=== PATIENT | male | born 1970 | race African-American/Black ===

== ENCOUNTER 2017-03-23 20:38 | Emergency (ER) | payer OTHER ==
[~2017-03-23] VITALS: Ht 185.4 cm; Wt 102.1 kg
[2017-03-23] MEDS ORDERED: OSELB75 PO (21:47)
== END 2017-03-23 22:39 | disposition home or self-care (01) ==
LOC: ER 20:38
DX: J09.X2 Influenza due to identified novel influenza A virus with other respiratory manifestations (principal)

== ENCOUNTER 2018-12-07 12:12 | Emergency (ER) | payer BC ==
[~2018-12-07] VITALS: Ht 185.4 cm; Wt 104.3 kg
[~2018-12-07 12:12] MED LIST: OSELB75 PO
[2018-12-07 12:15] VITALS: BP 124/80
[2018-12-07] MEDS ORDERED: PATADAY2.5 ML OPHTHALMIC ×2 (13:00→13:28)
== END 2018-12-07 12:57 | disposition home or self-care (01) ==
LOC: ER 12:12
DX: H10.9 Unspecified conjunctivitis (principal)

== ENCOUNTER 2020-12-06 16:59 | Inpatient (IN) | payer OTHER ==
[~2020-12-06] VITALS: Ht 185.4 cm; Wt 108.9 kg
[~2020-12-06 16:59] MED LIST changes: +PATADAY2.5 ML OPHTHALMIC
[2020-12-06 17:05] VITALS: BP 118/67
[2020-12-06 17:53] LABS: ABSOLUTE NEUTROPHILS 3.7 thou/uL (1.4-8.2); BASOPHILS 0.7 % (0.0-2.0); EOSINOPHILS 1.4 % (0.0-3.0); HEMATOCRIT 46.1 % (42.0-52.0); LYMPHOCYTES 40.4 % (24.0-44.0); MCH 26.7 pg (26.0-34.0); MCHC 32.6 g/dL (28.0-37.0); MCV 81.9 fL (80.0-100.0); MONOCYTES 6.3 % (1.0-8.0); PLATELET COUNT 226 thou/uL (150-400); POLYS 51.2 % (36.0-66.0); RBC 5.63 mil/uL (4.50-6.00); RDW 15.6 % (10.5-14.5); WBC 7.3 thou/uL (4.0-11.0)
[2020-12-06 17:59] LABS: CALCIUM 8.8 mg/dL (8.5-10.1); CREATININE 1.9 mg/dL (0.7-1.3); POTASSIUM 4.3 mmol/L (3.5-5.1)
[2020-12-06 23:56] LABS: CHOLESTEROL 214 mg/dL (<200); HDL CHOLESTEROL 30 mg/dL (>40); LDL CHOLESTEROL 163 mg/dL (<100); TC:HDL 7.1 Ratio (Not establshd); TRIGLYCERIDE 108 mg/dL (<150); VLDL 22 mg/dL (<40)
[2020-12-06 23:58] LABS: SERUM ASSESSMENT Clear
[2020-12-07 03:00] LABS: CALCIUM 8.1 mg/dL (8.5-10.1); CREATININE 1.5 mg/dL (0.7-1.3); POTASSIUM 4.2 mmol/L (3.5-5.1)
--- NOTE | 2020-12-07 07:09 | EKG ---
[place] [address] [address] [employer] [place] [address] ELECTROCARDIOGRAM REPORT Name: JONAS COATES Room #: 170-5 ADM IN ..#: [id number] Admission: 12/06/20 Attend Phys: Ciera Gurrola MD Discharge: Date of : 70 Report #: [id number] [facility] ED Test Date: 2020-12-06 Test Time: 17:05:05 Pat Name: JONAS COATES Department: Room: 170 Gender: M Medical Laboratory Scientist: reynold : 1970 Requested By: Dominic Sharif Order Number: [id number] MD: Jean Heard Measurements Intervals [place] Rate: 102 P: 26 MO: 173 QRS: -6 QRSD: 86 T: 0 QT: 317 QTc: 413 Interpretive Statements Sinus tachycardia Probable left atrial enlargement Borderline T abnormalities, inferior leads No previous ECG available for comparison Electronically Signed On 12-07-2020 7:09:28 CDT by Jean Heard [email or web address] <ELECTRONICALLY SIGNED> By: Jean Heard MD, [facility] 12/07/20 0709 1705 1705 Jean Heard MD, FACC /EPI
[2020-12-07 08:17] VITALS: BP 143/79
--- NOTE | 2020-12-07 10:56 | 2DMMODE ---
[facility] [place] [address] 2 D/M-MODE ECHOCARDIOGRAM Name: JONAS COATES Room #: 150-1 ADM IN M.R.#: [id number] Admission: 12/06/20 Attend Phys: Ciera Gurrola MD Discharge: Date of : 70 Report #: [id number] THIS REPORT FOR: cc: Daniel Haywood Brad DO Lundgren, Craig H. MD [facility] ~ APPROVED REPORT Study performed: 12/07/2020 10:21:20 EXAM: Comprehensive 2D, Doppler, and color-flow Echocardiogram Patient Location: CV holding Status: routine BSA: 2.33 HR: 70 bpm BP: 138/63 mmHg Rhythm: NSR Other Information Study Quality: Good/flat on back post heart cath Indications Palpitations Chest Pain Post angiogram/no intervention. 2D Dimensions RVDd: 39.26 mm IVSd: 11.13 (7-11mm) LVOT Diam: 22.82 (18-24mm) LVDd: 45.66 mm PWd: 11.00 (7-11mm) Ascending Ao: 33.42 (22-36mm) LVDs: 31.32 (25-40mm) Left Atrium: 32.35 (27-40mm) Aortic Root: 36.33 mm Volumes Left Atrial Volume (Systole) Single Plane 4CH: 41.76 mL Single Plane 2CH: 33.48 mL LA ESV Index: 18.00 mL/m2 Aortic Valve AoV Peak Austen.: 0.96 m/s [facility] [address] [place] [address] 2 D/M-MODE ECHOCARDIOGRAM Name: JONAS COATES Room #: 150-1 ADM IN ..#: [id number] Admission: 12/06/20 Attend Phys: Henny Knight Discharge: Date of : 70 Report #: [id number] AO Peak Gr.: 3.72 mmHg LVOT Max P.64 mmHg LVOT Max V: 0.81 m/s DIANA Vmax: 3.44 cm2 Mitral Valve E/A Ratio: 0.9 MV Decel. Time: 185.97 ms MV E Max Austen.: 0.48 m/s MV A Austen.: 0.54 m/s MV PHT: 53.93 ms IVRT: 96.89 ms Pulmonary Valve PV Peak Austen.: 1.03 m/s PV Peak Gr.: 4.27 mmHg Pulmonary Vein P Vein S: 0.53 m/s P Vein D: 0.31 m/s P Vein S/D Ratio: 1.71 Tricuspid Valve TR Peak Austen.: 1.72 m/s RAP Estimate: 5.00 mmHg TR Peak Gr.: 12.00 mmHg PA Pressure: 17.00 mmHg Left Ventricle The left ventricle is normal size. There is normal LV segmental wall motion. There is normal left ventricular wall thickness. Left ventricular systolic function is normal. LVEF is 55%. Mild diastolic dysfunction Right Ventricle The right ventricle is normal size. The right ventricular systolic function is normal. Atria The left atrium size is normal. The right atrium size is normal. Aortic Valve The aortic valve is normal in structure. No aortic regurgitation is present. There is no aortic valvular stenosis. Mitral Valve The mitral valve is normal in structure. There is no mitral valve regurgitation noted. No evidence of mitral valve stenosis. [facility] [place] [address] 2 D/M-MODE ECHOCARDIOGRAM Name: JONAS COATES Room #: 150-1 ADM IN M.R.#: [id number] Admission: 12/06/20 Attend Phys: Henny Knight Discharge: Date of : 70 Report #: [id number] Tricuspid Valve The tricuspid valve is normal in structure. Trace tricuspid regurgitation. Estiamted PAP < 20mmHg. Pulmonic Valve The pulmonary valve is normal in structure. Trace pulmonic regurgitation. Great Vessels The aortic root is normal in size. The ascending aorta is normal in size. IVC is normal in size and collapses >50% with inspiration. Pericardium There is no pericardial effusion. <Conclusion> Left ventricular systolic function is normal. There is normal LV segmental wall motion. LVEF is 55%. Mild diastolic dysfunction The aortic valve is normal in structure. No aortic regurgitation or stenosis. The mitral valve is normal in structure. No mitral valve regurgitation. Trace tricuspid regurgitation. Estiamted pulmonary artery pressure < 20mmHg. There is no pericardial effusion. <ELECTRONICALLY SIGNED> By: Rupesh Powell MD, FACC 12/07/20 1056 55 55 Rupesh Powell MD, FACC /INF
--- NOTE | 2020-12-07 17:32 | CATHLAB ---
[facility] [place] [address] INVASIVE PROCEDURE REPORT Name: JONAS COATES Room #: 150-1 ADM IN M.R.#: [id number] Admission: 12/06/20 Attend Phys: Ciera Gurrola MD Discharge: Date of : 70 Report #: [id number] THIS REPORT FOR: cc: Daniel Haywood Brad DO Mancuso, Gerald M. MD [facility] ~ APPROVED REPORT Study performed: 12/07/2020 09:05:49 Patient Details Patient Status: ED Room #: The patient is a 50 year-old male Event Personnel Juan Jose Musa Small Parts Assembler, Layla Nichole RT(R)() Monitor, Devora Kam RTR, STAVE CUTTER Scrub, Helen Christopher RN maintenance pipefitter Performed Art Access - R femoral artery* Left Heart Cath w/or w/o Coronaries [id number] [facility] Hemostasis w/ Mynx 12338 Initial Mod Sed Same Phys/QHP Gr5y [id number] Procedure Narrative The Right Groin^ was infiltrated with 1% Lidocaine subcutaneous anesthesia. A PINNACLE 6FR Sheath #[id number] sheath was inserted into the RFA 6F^. Coronary angiography was performed using coronary diagnostic catheters. The right coronary system was accessed and visualized with a JR4 catheter. The left coronary system was accessed and visualized with a JL4 catheter. The left ventricle was accessed and visualized with a PIGTAIL catheter. The patient tolerated the procedure well and there were no complications associated with the procedure. There was no hematoma. Intraoperative Conscious Sedation Fentanyl 50 mcg Versed 1 mg Fluoro Time: 1.01 minutes Dose: DAP 2665.00 cGycm2 Contrast Type and Amount: Visipaque 55 ml Hemodynamics The aortic pressure is 124/65 mmHg with a mean of 84 mmHg. The left [facility] [address] [place] [address] INVASIVE PROCEDURE REPORT Name: JAXON,JONAS Dima Room #: [facility] ADM IN [facility].#: [id number] Admission: 12/06/20 Attend Phys: Henny Knight Discharge: Date of : 70 Report #: [id number] ventricular pressure is 132/10 mmHg with a mean of mmHg. The left ventricular end diastolic pressure is 23 mmHg. Conclusion #1 Normal left ventricular size and systolic function EF 60%. #2 left main large free of disease giving rise to LAD and circumflex. #3 mild irregularity in the proximal mid LAD no occlusive disease. Mild ectasia. 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 There is no occlusive disease. Slightly slow flow is noted throughout Recommendations and plan: Continue aggressive risk factor modification. Would add statin therapy and aspirin to this regimen. Follow-up will be arranged. <ELECTRONICALLY SIGNED> By: Juan Jose Musa MD, FACC 12/07/201731 31 31 Juna Jose Musa MD, FACC /INF
== END 2020-12-07 13:32 | disposition home or self-care (01) | DRG 286 ==
LOC: ER 16:59 → EROBS 22:13 → TBA 22:13
PROVIDERS: Nurse Practitioner Family; Student in an Organized Health Care Education/Training Program; ADMIT Hospitalist; ATTEND Hospitalist
PROC: B211YZZ Fluoroscopy of Multiple Coronary Arteries using Other Contrast (ICD-10-PCS; principal; 2020-12-07)
PROC: 4A023N7 Measurement of Cardiac Sampling and Pressure, Left Heart, Percutaneous Approach (ICD-10-PCS; principal; 2020-12-07)
DX: I25.10 Atherosclerotic heart disease of native coronary artery without angina pectoris (principal); N17.0 Acute kidney failure with tubular necrosis; Z20.822 Contact with and (suspected) exposure to COVID-19; E78.5 Hyperlipidemia, unspecified; Z82.49 Family history of ischemic heart disease and other diseases of the circulatory system; Z79.82 Long term (current) use of aspirin; Z79.899 Other long term (current) drug therapy